=== PATIENT | female | born 1985 | race Caucasian/White ===

== ENCOUNTER 2016-08-31 11:51 | Emergency (ER) | payer OTHER ==
[~2016-08-31] VITALS: Ht 160 cm; Wt 54.0 kg
[~2016-08-31 11:51] MED LIST: PREN-385 PO
[2016-08-31 11:57] VITALS: BP 112/82
[2016-08-31] MEDS ORDERED: [UNRECOGNIZED DRUG - CODE] PO (12:06)
[2016-08-31] MEDS ORDERED: CIPR250P1 PO (12:06)
--- NOTE | 2016-08-31 12:07 | NUR ---
PT AMBULATE TO RESTROOM. URINE CUP AND WIPE GIVEN FOR SAMPLE.
--- NOTE | 2016-08-31 12:10 | NUR ---
Patient to bed 07.
--- NOTE | 2016-08-31 12:19 | NUR ---
PT STATES VOMITING, DIZZY, CHILLS AND BODYACHES SINCE YESTERDAY. SEEN BY PMD ON SUNDAY FOR SORE THROAT, RX CIPROFLOXACIN AND PSEUDOEPHEDRINE. STS GOT A LOT OF MUSQUITO BITES WHILE IN [facility] X5DAYS AGO. STS BEING TX FOR UTI PRIOR TO TRIP TO [facility]. HX UTI'S . SKIN IS PINK/WARM/DRY; AAOX4 WITH EVEN AND STEADY GAIT; LUNGS CLEAR BL; HR EVEN AND REGULAR; PT DENIES ANY FEVER, CP, SOB, OR COUGH AT THIS TIME; PATIENT STATES PAIN OF 8/10 AT THIS TIME; VSS; PATIENT POSITIONED FOR COMFORT; HOB ELEVATED; BEDRAILS UP X2; BED DOWN. ER MD MADE AWARE OF PT STATUS.
[2016-08-31] MEDS ORDERED: NACL 0.9% 1,000 ML IV ONE (12:20)
[2016-08-31] MEDS ORDERED: KETOROLAC 30 MG/ML VIAL IVP ONE (12:20)
[2016-08-31] MEDS ORDERED: ONDANSETRON 4 MG/2 ML VIAL IVP ONE (12:20)
--- NOTE | 2016-08-31 12:22 | NUR ---
Dr. Hess evaluating patient at bedside.
[2016-08-31 12:38] LABS: APPEARANCE,URINE HAZY (CLEAR); BILIRUBIN,URINE 1+ (NEGATIVE); COLOR,URINE YELLOW (YELLOW); LEUKOCYTE ESTERASE ,URINE 1+ (NEGATIVE); NITRITE, URINE NEGATIVE (NEGATIVE); PH,URINE 5.5 (5.0-9.0); PROTEIN,URINE TRACE (NEGATIVE); UGLUCOSE NEGATIVE (NEGATIVE); UROBILINOGEN,URINE 0.2 EU/dL (0.2 - 1)
--- NOTE | 2016-08-31 12:43 | NUR ---
Adarsh lacy in [facility] - 08/31/16 at 1313 by VILMA XRAY at bedside.
[2016-08-31 12:51] LABS: ALBUMIN 3.8 g/dL (3.4-5.0); ANION GAP 11.9 (8-16); CALCIUM 8.5 mg/dL (8.5-10.1); CARBON DIOXIDE 28.4 mmol/L (21-32); CREATININE 0.7 mg/dL (0.6-1.3); POTASSIUM 3.3 mmol/L (3.5-5.1); TOTAL BILIRUBIN 0.7 mg/dL (0.0-1.0); TOTAL PROTEIN, SERUM 8.3 g/dL (6.4-8.2)
[2016-08-31 13:02] LABS: EOSINOPHILS # (AUTO) 0.1 K/uL (0-0.4); HEMOGLOBIN 12.7 g/dL (12.0-16.0); LYMPHOCYTES # (AUTO) 0.3 K/uL (2.5-16.5); LYMPHOCYTES % (AUTO) 8.3 % (20.5-51.1); MEAN CORPUSCULAR HEMOGLOBIN 30 pg (27-31); MEAN CORPUSCULAR HGB CONC 33 g/dL (33-37); MEAN CORPUSCULAR VOLUME 89 fL (80-94); MONOCYTES # (AUTO) 0.5 K/uL (0.8-1.0); MONOCYTES % (AUTO) 12.3 % (1.7-9.3); NEUTROPHILS # (AUTO) 3.3 K/uL (1.8-7.7); NEUTROPHILS % (AUTO) 75.4 % (42.2-75.2); PLATELET COUNT (AUTO) 179 K/uL (140-450); RED BLOOD CELL COUNT(AUTO) 4.28 MIL/uL (4.20-5.40); RED CELL DISTRIBUTION WIDTH 12.5 % (11.6-13.7); WHITE BLOOD COUNT (AUTO) 4.2 K/uL (4.8-10.8)
[2016-08-31 13:02] LABS: ICTOTEST NEGATIVE (NEGATIVE)
[2016-08-31 13:03] LABS: BACTERIA,URINE 0-2 (RARE) /HPF (None Seen); MUCUS,URINE 1+ /LPF (None Seen); SQUAMOUS EPITHELIAL CELL,UR 4-10 (MOD) /LPF (0-3 (FEW))
[2016-08-31 13:04] LABS: BLOOD, URINE 1+ (NEGATIVE)
--- NOTE | 2016-08-31 13:13 | NUR ---
XRAY at bedside.
[2016-08-31 13:49] VITALS: BP 112/82
--- NOTE | 2016-08-31 13:49 | NUR ---
Patient discharged with v/s stable. Written and verbal after care instructions given and explained. Patient alert, oriented and verbalized understanding of instructions. Ambulatory with steady gait. All questions addressed prior to discharge. ID band removed. Patient advised to follow up with PMD. Rx of ZOFRAN AND MOTRIN given. Patient educated on indication of medication including possible reaction and side effects. Opportunity to ask questions provided and answered.
== END 2016-08-31 13:49 | disposition home or self-care (01) ==
LOC: MED 11:51
DX: J06.9 Acute upper respiratory infection, unspecified (principal); R11.2 Nausea with vomiting, unspecified
CPT/HCPCS: 36415; 71010; 80053; 81001; 81025; 84702; 85025; 87086; 96361; 96374; 96375; 99285; J1885; J2405; J7030